=== PATIENT | male | born 1980 | race Caucasian/White ===

== ENCOUNTER 2021-03-07 16:11 | Emergency (ER) | payer OTHER ==
[2021-03-07] MEDS ORDERED: ceFAZolin 2 GM/DEX 5% 100 ML BAG ONE (16:23)
[2021-03-07] MEDS ORDERED: CEFAZOLIN 1 GM VIAL ONE (16:26)
[2021-03-07 16:42] LABS: Hemoglobin 17.7 g/dL (14.0-18.0); Mean Corpuscular HGB CONC 33.9 g/dL (32.0-36.0); Mean Corpuscular Hemoglobin 33.7 pg (27.0-31.0); Mean Corpuscular Volume 99.6 fL (78.0-98.0); Mean Platelet Volume 7.8 fL (7.4-10.4); Platelet Count 263 thou/uL (130-400); Red Blood Cell (RBC) Count 5.25 mill/uL (4.70-6.10); White Blood Cell (WBC) Count 18.1 thou/uL (4.8-10.8)
[2021-03-07] MEDS ORDERED: Ketorolac Tromethamine 30 MG/ML VIAL ONE (16:56)
[2021-03-07 16:57] LABS: Anion Gap 16 mmol/L (10-20); BUN (Urea Nitrogen) 14 mg/dL (8.9-20.6); Calc. Creatinine Clearance 0 mL/min (70-130); Calcium 9.1 mg/dL (7.8-10.44); Carbon Dioxide 19 mmol/L (22-29); Chloride 109 mmol/L (98-107); Glucose 131 mg/dL (70-105); Potassium 4.5 mmol/L (3.5-5.1); Sodium 139 mmol/L (136-145)
[2021-03-07 16:59] LABS: Band 1 % (5-11); Lymphocytes 28 % (21-51); MDiff Complete? YES; Monocytes 5 % (0-10); Neutrophil 64 % (42-75); Platelet Morphology Comment Appears Adequate; RBC Morphology Normal; Reactive Lymphocytes 1 % (0-10)
== END 2021-03-07 19:23 | disposition home or self-care (01) ==
LOC: EDBD 16:11 → ERS 16:11
DX: S40.212A Abrasion of left shoulder, initial encounter (principal); S30.811A Abrasion of abdominal wall, initial encounter; M25.571 Pain in right ankle and joints of right foot; M79.631 Pain in right forearm; V53.5XXA Driver of pick-up truck or van injured in collision with car, pick-up truck or van in traffic accident, initial encounter; Y92.410 Unspecified street and highway as the place of occurrence of the external cause
CPT/HCPCS: 70450; 71260; 72125; 74177; 80048; 85025; 96365; 96375; G0390; J0690; J1885

== ENCOUNTER 2021-03-09 17:11 | Emergency (ER) ==
[2021-03-09] MEDS ORDERED: Ketorolac Tromethamine 30 MG/ML VIAL ONE (19:38)
== END 2021-03-09 20:15 | disposition home or self-care (01) ==
LOC: ERS 17:11
DX: G56.01 Carpal tunnel syndrome, right upper limb (principal); F17.210 Nicotine dependence, cigarettes, uncomplicated; Z79.899 Other long term (current) drug therapy
CPT/HCPCS: 29125; 96372; J1885

== ENCOUNTER 2021-04-01 08:42 | Outpatient (CLI) | payer OTHER | END 2021-04-01 08:43 | disposition home or self-care (01) | LOC: TBSIIMAG 08:42 | PROVIDERS: ATTEND Orthopaedic Surgery Hand Surgery | DX: S63.8X1A Sprain of other part of right wrist and hand, initial encounter (principal); S52.614A Nondisplaced fracture of right ulna styloid process, initial encounter for closed fracture ==

== ENCOUNTER 2021-05-24 11:58 | Observation (INO) | payer OTHER ==
[2021-05-24] MEDS ORDERED: Midazolam HCl 2 mg/2 ml Vial ONE (15:58)
[2021-05-24] MEDS ORDERED: HYDROmorphone 0.5 MG/0.5 ML SYRINGE ONE ×2 (15:58→18:43)
[2021-05-24] MEDS ORDERED: Fentanyl 100 MCG/2 ML VIAL ONE ×2 (15:58→21:12)
[2021-05-24] MEDS ORDERED: NEOMYCIN-POLYMYXIN-HC EAR SUSP 200 DROP/10 ML BOT ONE (16:03)
[2021-05-24] MEDS ORDERED: Bupivacaine PF 0.5% 30 ML VIAL ONE (16:03)
[2021-05-24] MEDS ORDERED: EPINEPHrine 1 MG/ML AMP ONE (16:03)
[2021-05-24] MEDS ORDERED: Bacitracin Zinc Ointment 30 gm TUBE ONE (16:03)
[2021-05-24] MEDS ORDERED: Neomycin-Polymyxin 1 ML AMP ONE (16:03)
[2021-05-24] MEDS ORDERED: Ketorolac Tromethamine 30 MG/ML VIAL ONE (16:46)
[2021-05-24] MEDS ORDERED: Dexamethasone 20 MG/5 ML VIAL ONE (16:46)
[2021-05-24] MEDS ORDERED: Ondansetron PF 4 MG/2 ML Vial ONE (16:46)
[2021-05-24] MEDS ORDERED: Lidocaine 1% PF 5 ML VIAL ONE (16:46)
[2021-05-24] MEDS ORDERED: Phenylephrine 10 MG/ML VIAL ONE (16:46)
[2021-05-24] MEDS ORDERED: PROPOFOL 200 MG/20 ML VIAL ONE (16:46)
[2021-05-24] MEDS ORDERED: Promethazine HCl 25 MG/ML VIAL IM PRN (21:34)
[2021-05-24] MEDS ORDERED: traMADol HCl 50 MG TAB PO PRN (21:34)
[2021-05-24] MEDS ORDERED: Acetaminophen 325 MG TAB PO PRN (21:34)
[2021-05-24] MEDS ORDERED: Ondansetron PF 4 MG/2 ML Vial SLOW IVP PRN (21:34)
[2021-05-24] MEDS ORDERED: Fentanyl 100 MCG/2 ML VIAL SLOW IVP PRN (21:34)
[2021-05-24] MEDS ORDERED: HYDROmorphone 2 MG/ML VIAL ONE (21:42)
[2021-05-24] MEDS ORDERED: Communication Order-Pharmacy FS SCH (21:45)
[2021-05-24] MEDS ORDERED: HYDROcodone/Acetaminophen 5/325 mg Tablet ONE ×2 (21:57)
[2021-05-24] MEDS ORDERED: Vancomycin 1 GM in Premix Bag 1 BAG IVPB SCH (22:00)
[2021-05-24] MEDS ORDERED: TETANUS AND DIPHTHERIA TOX/PF 0.5 ML DISP.SYRIN IM SCH (23:00)
[2021-05-24 23:17] VITALS: BMI 35.4
[2021-05-24] MEDS: Morphine 4 MG/ML VIAL SLOW IVP PRN (23:22)
[2021-05-24] MEDS: Sodium Chloride 0.9% 1,000 ML IV SCH (23:22)
[2021-05-25] MEDS: HYDROcodone/Acetaminophen 5/325 mg Tablet PO PRN ×3 (00:33→15:06)
[2021-05-25] MEDS: Ketorolac Tromethamine 30 MG/ML VIAL IVP PRN ×2 (00:33→08:40)
[2021-05-25] MEDS: Meperidine HCl/PF 25 MG/ML VIAL IM PRN ×3 (02:23→17:09)
[2021-05-25] MEDS: Morphine 4 MG/ML VIAL SLOW IVP PRN ×3 (04:48→13:01)
[2021-05-25] MEDS ORDERED: Vancomycin 1.5 GRAM/300 ML BAG 1.5 GM in Premix Bag 1 BAG IVPB SCH (09:00)
[2021-05-25] MEDS ORDERED: Aspirin 81 mg Enteric Coated Tablet PO SCH (09:00)
[2021-05-25] MEDS: Sodium Chloride 0.9% 1,000 ML IV SCH (11:46)
[2021-05-25] MEDS ORDERED: Nicotine 21 MG PATCH TOP SCH (14:00)
[2021-05-25 16:24] VITALS: BP 104/59; TEMP 98.4
== END 2021-05-25 17:30 | disposition home or self-care (01) ==
LOC: SDC 11:58 → SJJU 21:34 → INTOOBSV 21:34
PROVIDERS: ADMIT Orthopaedic Surgery Hand Surgery; ATTEND Orthopaedic Surgery Hand Surgery
PROC: 0LQ50ZZ Repair Right Lower Arm and Wrist Tendon, Open Approach (ICD-10-PCS; principal; 2021-05-24)
PROC: 0RSN04Z Reposition Right Wrist Joint with Internal Fixation Device, Open Approach (ICD-10-PCS; 2021-05-24)
PROC: 0RQN0ZZ Repair Right Wrist Joint, Open Approach (ICD-10-PCS; 2021-05-24)
DX: S63.591A Other specified sprain of right wrist, initial encounter (principal); S66.329A Laceration of extensor muscle, fascia and tendon of unspecified finger at wrist and hand level, initial encounter; M65.88 Other synovitis and tenosynovitis, other site; M19.012 Primary osteoarthritis, left shoulder; X58.XXXA Exposure to other specified factors, initial encounter; Y99.0 Civilian activity done for income or pay
CPT/HCPCS: 76000; 96372; 96374; 96375; 96376; G0378; J0171; J1100; J1170; J1885; J2175; J2250; J2270; J2370; J2405; J2550; J2704; J3010; J3370; J7050; S0020

== ENCOUNTER 2021-07-21 13:26 | Outpatient (CLI) | payer OTHER ==
[2021-07-22 00:11] LABS: SARS-CoV-2 PCR by NAA Not Detected (NotDetected)
== END 2021-07-21 13:27 | disposition home or self-care (01) ==
LOC: LABBT 13:26
PROVIDERS: ATTEND Orthopaedic Surgery Hand Surgery
DX: Z01.812 Encounter for preprocedural laboratory examination (principal); S63.014A Dislocation of distal radioulnar joint of right wrist, initial encounter; Z20.822 Contact with and (suspected) exposure to COVID-19
CPT/HCPCS: U0003; U0005

== ENCOUNTER 2021-07-26 05:48 | Day surgery (SDC) | payer OTHER ==
[2021-07-20 11:10] VITALS: BMI 32.5
[2021-07-26] MEDS ORDERED: Fentanyl 250 MCG/5 ML VIAL ONE ×2 (05:57→08:26)
[2021-07-26] MEDS ORDERED: Bacitracin Zinc Ointment 30 gm TUBE ONE (06:49)
[2021-07-26] MEDS ORDERED: Bupivacaine PF 0.5% 30 ML VIAL ONE (06:49)
[2021-07-26] MEDS ORDERED: Betamet Acet/Betamet Na Ph 30 MG/5 ML VIAL ONE (06:49)
[2021-07-26] MEDS ORDERED: Neomycin-Polymyxin 1 ML AMP ONE (06:49)
[2021-07-26] MEDS ORDERED: Midazolam HCl 2 mg/2 ml Vial ONE (06:54)
[2021-07-26] MEDS ORDERED: ceFAZolin Sodium (SDC) 2 GM/100 ML BAG ONE ×2 (07:01→07:02)
[2021-07-26] MEDS ORDERED: Ketorolac Tromethamine 30 MG/ML VIAL ONE ×2 (07:32→08:26)
[2021-07-26] MEDS ORDERED: Ondansetron PF 4 MG/2 ML Vial ONE (07:32)
[2021-07-26] MEDS ORDERED: PROPOFOL 200 MG/20 ML VIAL ONE (07:32)
[2021-07-26] MEDS ORDERED: Dexamethasone 20 MG/5 ML VIAL ONE (07:32)
[2021-07-26] MEDS ORDERED: Lidocaine 1% PF 5 ML VIAL ONE (07:32)
[2021-07-26] MEDS ORDERED: PHENYLEPHRINE-NS 100 MCG/ML 10 ML SYRINGE ONE (07:32)
== END 2021-07-26 09:51 | disposition home or self-care (01) ==
LOC: SDC 05:48
PROVIDERS: ATTEND Orthopaedic Surgery Hand Surgery
DX: T84.192A Other mechanical complication of internal fixation device of bone of right forearm, initial encounter (principal); F17.200 Nicotine dependence, unspecified, uncomplicated; Z79.82 Long term (current) use of aspirin; Z79.899 Other long term (current) drug therapy; Y79.1 Therapeutic (nonsurgical) and rehabilitative orthopedic devices associated with adverse incidents
CPT/HCPCS: 76000; J0690; J0702; J1100; J1885; J2250; J2405; J2704; J3010; S0020

== ENCOUNTER 2022-04-18 10:09 | Day surgery (SDC) | payer OTHER ==
[2022-04-17 12:08] VITALS: BMI 32.5
[2022-04-18 13:04] LABS: Hemoglobin 18.6 g/dL (14.0-18.0); Mean Corpuscular HGB CONC 33.9 g/dL (32.0-36.0); Mean Corpuscular Hemoglobin 35.3 pg (27.0-31.0); Mean Platelet Volume 7.2 fL (7.4-10.4); Platelet Count 244 10x3/uL (130-400); RBC Distribution Width 12.2 % (11.5-14.5); Red Blood Cell (RBC) Count 5.27 mill/uL (4.70-6.10); White Blood Cell (WBC) Count 11.6 10x3/uL (4.8-10.8)
[2022-04-18 13:23] LABS: PTT 31.5 sec (22.9-36.1); Prothrombin Time 13.3 sec (12.0-14.7)
[2022-04-18 13:35] LABS: ALT (SGPT) 223 U/L (8-55); AST (SGOT) 111 U/L (5-34); Albumin 4.1 g/dL (3.5-5.0); Alkaline Phosphatase 149 U/L (40-110); Bilirubin, Direct 0.2 mg/dL (0.1-0.3); Bilirubin, Total 0.6 mg/dL (0.2-1.2)
[2022-04-18 15:06] LABS: Calcium 9.4 mg/dL (7.8-10.44); Chloride 106 mmol/L (98-107); Potassium 4.6 mmol/L (3.5-5.1); Sodium 138 mmol/L (136-145)
[2022-04-18 15:07] LABS: Glucose 103 mg/dL (70-105)
[2022-04-18 15:08] LABS: Anion Gap 15 mmol/L (10-20); Carbon Dioxide 22 mmol/L (22-29)
[2022-04-18 15:10] LABS: Calc. Creatinine Clearance 148 mL/min (70-130); Estimated GFR 108
[2022-04-18 15:11] LABS: BUN (Urea Nitrogen) 14 mg/dL (8.9-20.6)
[2022-04-18] MEDS ORDERED: Bacitracin Zinc Ointment 30 gm TUBE ONE (16:11)
[2022-04-18] MEDS ORDERED: Bupivacaine PF 0.5% 30 ML VIAL ONE (16:11)
[2022-04-18] MEDS ORDERED: fentaNYL PF 100 MCG/2 ML SYRINGE ONE (16:16)
[2022-04-18] MEDS ORDERED: Midazolam HCl 2 mg/2 ml Vial ONE (16:16)
[2022-04-18] MEDS ORDERED: Propofol 1,000 MG/100 ML VIAL IV ONE (16:17)
[2022-04-18] MEDS ORDERED: CEFAZOLIN 2 GM VIAL ONE (16:17)
[2022-04-18] MEDS ORDERED: Sodium Chloride 0.9% 100 ML ONE (16:17)
[2022-04-18] MEDS ORDERED: FENTANYL 50 MCG/ML 1 ML VIAL ONE ×2 (17:27→17:36)
[2022-04-18] MEDS ORDERED: Ketorolac Tromethamine 30 MG/ML VIAL ONE (17:54)
[2022-04-18] MEDS ORDERED: HYDROcodone/Acetaminophen 5/325 mg Tablet ONE (18:02)
== END 2022-04-18 18:27 | disposition home or self-care (01) ==
LOC: SDC 10:09
PROVIDERS: ATTEND Orthopaedic Surgery Hand Surgery
PROC: 0RPN04Z Removal of Internal Fixation Device from Right Wrist Joint, Open Approach (ICD-10-PCS; principal; 2022-04-18)
DX: T84.84XA Pain due to internal orthopedic prosthetic devices, implants and grafts, initial encounter (principal); F17.200 Nicotine dependence, unspecified, uncomplicated; Z79.82 Long term (current) use of aspirin; Z79.899 Other long term (current) drug therapy; Y79.3 Surgical instruments, materials and orthopedic devices (including sutures) associated with adverse incidents
CPT/HCPCS: 36415; 80048; 80076; 85027; 85610; 85730; 93005; 93010; J1885; J2250; J2704; J3010; J3490; S0020

== ENCOUNTER 2023-06-15 13:49 | Outpatient (CLI) | payer OTHER ==
[2023-06-15 14:54] LABS: #Basophils 0.1 10x3/uL (0.0-0.2); #Eosinphils 0.1 10x3/uL (0.0-0.5); #Neutrophils 5.9 10x3/uL (1.5-8.4); %Basophils 0.5 % (0.0-2.0); %Lymphocytes 40.1 % (18.0-47.0); %Monocytes 8.4 % (0.0-10.0); %Neutrophils 49.6 % (40.0-75.0); Mean Corpuscular HGB CONC 35.3 g/dL (32.0-36.0); Mean Corpuscular Hemoglobin 34.4 pg (27.0-33.0); Mean Corpuscular Volume 97.3 fl (81.2-95.1); Mean Platelet Volume 9.8 fl (7.4-10.4); Platelet Count 220 10x3/uL (150-450); RBC Distribution Width 13.1 % (11.5-14.5); Red Blood Cell (RBC) Count 5.24 10x6/uL (4.32-5.72)
== END 2023-06-15 13:50 | disposition home or self-care (01) ==
LOC: LABBT 13:49
PROVIDERS: ATTEND Orthopaedic Surgery Hand Surgery
DX: Z01.812 Encounter for preprocedural laboratory examination (principal); S63.591A Other specified sprain of right wrist, initial encounter; M77.8 Other enthesopathies, not elsewhere classified; M65.88 Other synovitis and tenosynovitis, other site
CPT/HCPCS: 85025

== ENCOUNTER 2023-06-19 06:14 | Day surgery (SDC) | payer OTHER ==
[2023-06-15 14:39] VITALS: BMI 35.4
[2023-06-19 07:24] LABS: Hematocrit 49.7 % (42.0-52.0); Hemoglobin 17.7 g/dL (14.0-18.0); Manual Diff?? YES; Mean Corpuscular HGB CONC 35.6 g/dL (32.0-36.0); Mean Corpuscular Hemoglobin 35.5 pg (27.0-31.0); Mean Corpuscular Volume 99.6 fl (78.0-98.0); Mean Platelet Volume 9.8 fL (7.4-10.4); Platelet Count 213 10x3/uL (130-400); RBC Distribution Width 12.9 % (11.5-14.5); Red Blood Cell (RBC) Count 4.99 mill/uL (4.70-6.10); White Blood Cell (WBC) Count 11.8 10x3/uL (4.8-10.8)
[2023-06-19 07:38] LABS: Delete Auto Diff?? YES
[2023-06-19] MEDS ORDERED: CEFAZOLIN 2 GM VIAL ONE (07:55)
[2023-06-19] MEDS ORDERED: Sodium Chloride 0.9% 100 ML ONE (07:56)
[2023-06-19 08:42] LABS: Band 1 % (5-11); CellaVision Operator ID LAB.KW3; Eosinophils 1 % (0-10); Lymphocytes 26 % (21-51); Monocytes 8 % (0-10); Neutrophil 58 % (42-75); Platelet Adequacy Comment Platelets Normal; RBC Morphology Within Normal Limits; Reactive Lymphocytes 5 % (0-10); Total Cell Count 100
[2023-06-19] MEDS ORDERED: Famotidine/PF 20 mg/2ml Vial ONE (08:43)
[2023-06-19] MEDS ORDERED: fentaNYL 50 mcg/mL 1 mL Vial ONE ×4 (08:51→11:15)
[2023-06-19] MEDS ORDERED: Lidocaine 2% PF 5 ML VIAL ONE (08:51)
[2023-06-19] MEDS ORDERED: PROPOFOL 20 ML ONE (08:51)
[2023-06-19] MEDS ORDERED: Bacitracin Zinc Ointment 30 gm TUBE ONE (08:57)
[2023-06-19] MEDS ORDERED: Bupivacaine PF 0.5% 30 ML VIAL ONE (08:57)
[2023-06-19] MEDS ORDERED: EPINEPHrine 1 MG/ML VIAL ONE (09:01)
[2023-06-19] MEDS ORDERED: Dexamethasone 4 mg/ml Vial ONE (09:33)
[2023-06-19] MEDS ORDERED: Ondansetron PF 4 MG/2 ML Vial ONE (09:33)
[2023-06-19] MEDS ORDERED: Metoclopramide HCl 10 MG (2 mL) VIAL ONE (09:33)
[2023-06-19] MEDS ORDERED: Ketorolac Tromethamine 30 MG (1 mL) VIAL ONE ×2 (09:40→11:40)
[2023-06-19] MEDS ORDERED: HYDROcodone/Acetaminophen 5/325 mg Tablet ONE (12:06)
== END 2023-06-19 12:35 | disposition home or self-care (01) ==
LOC: SDC 06:14
PROVIDERS: ATTEND Orthopaedic Surgery Hand Surgery
PROC: 0RBN4ZZ Excision of Right Wrist Joint, Percutaneous Endoscopic Approach (ICD-10-PCS; principal; 2023-06-19)
PROC: 0LB50ZZ Excision of Right Lower Arm and Wrist Tendon, Open Approach (ICD-10-PCS; principal; 2023-06-19)
DX: S63.591A Other specified sprain of right wrist, initial encounter (principal); S63.8X9A Sprain of other part of unspecified wrist and hand, initial encounter; S54.11XA Injury of median nerve at forearm level, right arm, initial encounter; M77.8 Other enthesopathies, not elsewhere classified; M65.831 Other synovitis and tenosynovitis, right forearm; F17.200 Nicotine dependence, unspecified, uncomplicated; M25.331 Other instability, right wrist; M19.041 Primary osteoarthritis, right hand; M77.9 Enthesopathy, unspecified; Z98.890 Other specified postprocedural states; Z79.82 Long term (current) use of aspirin; X58.XXXA Exposure to other specified factors, initial encounter
CPT/HCPCS: 85025; J0171; J1100; J1885; J2001; J2405; J2704; J2765; J3010; J3490; S0020; S0028